=== PATIENT | female | born 1975 | race Caucasian/White ===

== ENCOUNTER 2018-10-14 19:22 | Emergency (ER) | payer SELFPAY ==
[~2018-10-14] VITALS: Ht 161.3 cm; Wt 87.3 kg
[~2018-10-14 19:22] MED LIST: NOCURR
[2018-10-14 19:26] VITALS: BP 161/72
[2018-10-14] MEDS ORDERED: KETOROLAC TROMETHAMINE 30 MG/ML VIAL IM ONE (19:45)
[2018-10-14] MEDS ORDERED: CYCLOBENZAPRINE HCL 10 MG TABLET PO ONE (19:45)
== END 2018-10-14 20:17 | disposition home or self-care (01) ==
LOC: EMS 19:22
DX: S39.012A Strain of muscle, fascia and tendon of lower back, initial encounter (principal); V49.40XA Driver injured in collision with unspecified motor vehicles in traffic accident, initial encounter; Y93.89 Activity, other specified; Y92.89 Other specified places as the place of occurrence of the external cause; Y99.8 Other external cause status
CPT/HCPCS: 96372; 99283; J1885

== ENCOUNTER 2019-07-21 06:05 | Day surgery (SDC) | payer BC ==
[2019-07-20 14:02] LABS: BASOPHILS % (AUTO) 0.7 % (0.0-2.0); EOSINOPHILS % (AUTO) 2.2 % (1.0-6.0); HEMATOCRIT 28.7 % (36-46); HEMOGLOBIN 8.8 g/dL (12.0-16.0); LYMPHOCYTES % (AUTO) 22.6 % (22.0-44.0); MEAN CORPUSCULAR HEMOGLOBIN 20.6 pg (26.0-34.0); MEAN CORPUSCULAR HGB CONC 30.6 G/dL (31.0-37.0); MEAN CORPUSCULAR VOLUME 67 fL (80-100); MONOCYTES # (AUTO) 0.4 K/uL (0.1-1.0); NEUTROPHILS # (AUTO) 6.1 K/uL (1.8-7.7); NEUTROPHILS % (AUTO) 69.5 % (40.0-70.0); PLATELET COUNT (AUTO) 395 K/uL (150-450); RED BLOOD CELL COUNT(AUTO) 4.26 MIL/uL (4.00-5.20); RED CELL DISTRIBUTION WIDTH 19.4 % (11.5-14.5)
[2019-07-20 14:10] LABS: ANION GAP 9 mmol/L (8-16); CALCIUM, TOTAL 9.1 mg/dL (8.8-10.5); CARBON DIOXIDE 27 mmol/L (22-29); CHLORIDE 108 mmol/L (98-107); GLOMERULAR FILTR. RATE CALC > 60 mL/min (>60); GLUCOSE,RANDOM 97 mg/dL (70-110); POTASSIUM 3.8 mmol/L (3.5-5.1); SODIUM SERUM 144 mmol/L (136-145); UREA NITROGEN, BLOOD 17 mg/dL (7-18)
[2019-07-20 14:16] LABS: ALANINE AMINOTRANSFERASE 33 U/L (12-78); ALBUMIN 3.5 g/dL (3.4-5.0); ALKALINE PHOSPHATASE 100 U/L (46-116); ASPARTATE AMINOTRANSFERASE 17 U/L (15-37); BILIRUBIN,TOTAL 0.3 mg/dL (0.1-1.0); INR 1.1 (0.9-1.1); TOTAL PROTEIN, SERUM 7.9 g/dL (6.4-8.2)
[~2019-07-21] VITALS: Ht 161.3 cm; Wt 96.8 kg
[~2019-07-21 06:05] MED LIST changes: +ASPI81TA39 PO; +ATOR40TA28 PO; +CARV12 PO; +CLOP75TA32 PO; +LISI-660 PO; -NOCURR; +SERT100T12 PO; +SODIUM CHLORIDE 0.9% 1,000 ML IV ONE; +SODIUM CHLORIDE 0.9% 1,000 ML ONE
[2019-07-21] MEDS ORDERED: HEPARIN SODIUM 1000 UNITS/NS 1,000 ML ONE (07:48)
[2019-07-21] MEDS ORDERED: HEPARIN SODIUM,PORCINE 1,000 UNITS/ML 10 ML VIAL ONE (07:48)
[2019-07-21] MEDS ORDERED: LIDOCAINE/PF 1% 30 ML VIAL ONE (07:48)
[2019-07-21] MEDS ORDERED: IOHEXOL 300 MG/ML 150 ML VIAL ONE (07:48)
[2019-07-21] MEDS ORDERED: SODIUM BICARBONATE 50 MEQ/50 ML VIAL ONE (07:48)
[2019-07-21] MEDS ORDERED: MIDAZOLAM HCL 2 MG/2 ML VIAL ONE (07:59)
[2019-07-21] MEDS ORDERED: FentaNYL CITRATE-PF 100 MCG/2 ML VIAL ONE (07:59)
[2019-07-21] MEDS ORDERED: SODIUM CHLORIDE 0.9% 500 ML IV ONE (08:11)
[2019-07-21] MEDS ORDERED: HEPARIN SODIUM 1000 UNITS/NS 1,000 ML IARTER ONE (08:11)
[2019-07-21] MEDS ORDERED: HEPARIN SODIUM 2,000 UNITS in HEPARIN SODIUM 1000 UNITS/NS 1,000 ML IARTER ONE (08:11)
[2019-07-21] MEDS ORDERED: IOHEXOL 300 MG/ML 150 ML VIAL ICOR ONE (08:15)
[2019-07-21] MEDS ORDERED: NITROGLYCERIN 50 MG/D5% WATER 250 ML ONE (08:20)
[2019-07-21] MEDS ORDERED: VERAPAMIL HCL 2.5 MG/ML 2 ML VIAL ONE (08:20)
[2019-07-21] MEDS ORDERED: 0.9% SODIUM CHLORIDE 10 ML SYRINGE IVP ONE (08:21)
[2019-07-21] MEDS ORDERED: VERAPAMIL HCL 2.5 MG/ML 2 ML VIAL IARTER ONE ×2 (08:30→08:45)
[2019-07-21] MEDS ORDERED: NITROGLYCERIN/D5W 50 MG/250 ML IV BOTTLE IARTER ONE (08:30)
[2019-07-21] MEDS ORDERED: FUROSEMIDE 20 MG/2 ML VIAL ONE (08:43)
[2019-07-21] MEDS ORDERED: FentaNYL CITRATE-PF 100 MCG/2 ML VIAL IVP ONE (08:45)
[2019-07-21] MEDS ORDERED: MIDAZOLAM HCL 2 MG/2 ML VIAL IVP ONE (08:45)
[2019-07-21] MEDS ORDERED: HEPARIN SODIUM,PORCINE 1,000 UNITS/ML 10 ML VIAL IVP ONE (08:45)
[2019-07-21 08:58] VITALS: BP 119/64
[2019-07-21] MEDS ORDERED: FUROSEMIDE 20 MG/2 ML VIAL IVP ONE (09:15)
== END 2019-07-21 13:00 | disposition home or self-care (01) ==
LOC: CATHLAB 06:05
PROVIDERS: ATTEND Internal Medicine Cardiovascular Disease
DX: I20.9 Angina pectoris, unspecified (principal); F41.9 Anxiety disorder, unspecified; Z79.899 Other long term (current) drug therapy; E78.00 Pure hypercholesterolemia, unspecified; Z79.82 Long term (current) use of aspirin; Z11.59 Encounter for screening for other viral diseases
CPT/HCPCS: C1769; C1894; 93005; 99152; J1644; J1940; J2250; J3010; J3490; J7030; Q9967